=== PATIENT | male | born 1945 | race Caucasian/White ===

== ENCOUNTER 2022-10-10 12:05 | Emergency (ER) | payer OTHER, SELFPAY ==
[2022-10-10 12:13] VITALS: BP 102/62; PULSE 65; RESP 14; TEMP 36.7; O2SAT 97; BMI 14.9
--- NOTE | 2022-10-10 13:31 | ED_ITS ---
HPI - Skin/Abscess/Foreign Bdy General: Chief complaint: Skin/Abscess/Foreign Body Stated complaint: right leg has a lump with pain Time Seen by Provider: 10/10/22 13:26 History of Present Illness: Patient is a 77-year-old male comes to the ED with lesion on back of right thigh. Patient noticed sore bump on back of right thigh about 4 days ago. Denies removing any tick from area. The small bump on the back of his right leg is tender to the touch but denies any puslike drainage. Over the last 24 hours patient says he he has had the chills, body aches and fatigue. He does have other tick bites on the front of his right leg that he is removed the ticks from and has not had any problems with those tick bites. Associated symptoms: Deny chills, fever(s), nausea or vomiting Review of Systems Const: Denies: fever(s), chills or fatigue Eyes: Denies: change in vision or eye discomfort ENMT: Denies: throat pain, odynophagia, nasal discharge or nasal congestion Card: Denies: chest pain, palpitations, edema, swelling of feet/ankles, dyspnea on exertion or orthopnea Resp: Denies: dyspnea, productive cough or non-productive cough GI: Denies: abdominal pain, nausea, vomiting, diarrhea, constipation or hematochezia : Denies: flank pain, difficulty urinating, dysuria or hematuria Musc: Denies: neck pain, back pain or extremity swelling Skin/Breast: Reports: new lesions (Right posterior thigh); Denies: rash Neuro: Denies: headache(s), numbness in extremities or weakness in extremities [facility] ED PFSH: Medical History (Updated 10/10/22 @ 13:54 by BENIGNO Kirkpatrick) No pertinent family history Surgical History (Updated 10/10/22 @ 13:54 by BENIGNO Kirkpatrick) No pertinent past surgical history Physical Exam Const: COMMON NORMALS: no acute distress, patient oriented x3 and alert HENMT: COMMON NORMALS: normocephalic HEAD & SCALP: normocephalic MOUTH: Normal oral and palatal mucosa present THROAT: posterior oropharynx normal and uvula midline Neck/C-Spine: COMMON NORMALS: supple GENERAL: Yes normal visual inspection Resp: COMMON NORMALS: normal respiratory effort, No retractions, No use of accessory muscles and clear to auscultation bilaterally AUSCULTATION: clear to auscultation bilaterally Cardio: COMMON NORMALS: regular rate, regular rhythm, S1 normal heart sound present, S2 normal heart sound present, No gallops present (Cardio), No clicks present (Cardio), No murmurs present (Cardio) and Peripheral pulses 2+ throughout RATE: regular rate RHYTHM: regular rhythm HEART SOUNDS: S1 normal heart sound present and S2 normal heart sound present PERIPHERAL PULSES: Peripheral pulses 2+ throughout GI: COMMON NORMALS: Normal to inspection, nondistended, normoactive bowel sounds present, Soft to palpation, non-tender and no masses PALPATION: Yes Soft to palpation : COMMON NORMALS: Yes no CVA tenderness BLADDER/KIDNEY EXAM: Yes no CVA tenderness Back/Pelvis: COMMON NORMALS: no CVA tenderness Extremity: COMMON NORMALS: normal to inspection Neuro: COMMON NORMALS: patient oriented x3 SENSORIUM/ORIENTATION: Yes alert GAIT: Yes Normal gait present Skin: NARRATIVE SKIN EXAM: Right posterior thigh?small, less than 0.5 cm diameter papule with some slight erythema and it is tender. No purulent drainage or warmth noted. No embedded tick seen. No erythema migrans. Findings suggestive of a bug bite. GENERAL SKIN EXAM: dry skin Course Vital Signs: Vital signs: Vital Signs Temperature 98.0 F 10/10/22 12:13 Pulse Rate 65 10/10/22 12:13 Respiratory Rate 14 10/10/22 12:13 Blood Pressure 102/62 10/10/22 12:13 Pulse Oximetry 97 10/10/22 12:13 Oxygen Delivery Me thod Room Air 10/10/22 12:13 MDM - Skin/Abscess/Foreign Bdy Medicial Decision Making Patient is a 77-year-old male comes to the ED with lesion on back of right thigh. Patient noticed sore bump on back of right thigh about 4 days ago. Denies removing any tick from area. The small bump on the back of his right leg is tender to the touch but denies any puslike drainage. Over the last 24 hours patient says he he has had the chills, body aches and fatigue. He does have other tick bites on the front of his right leg that he is removed the ticks from and has not had any problems with those tick bites. Right posterior thigh?small, less than 0.5 cm diameter papule with some slight erythema and it is tender. No purulent drainage or warmth noted. No embedded tick seen. No erythema migrans. Findings suggestive of a bug bite. Vitals are stable. Patient was diagnosed with insect bite and was discharged home with a prescription for doxycycline to cover potential tick bite and tick disease. He was told to follow-up with his PCP in the next week for reevaluation. Return to ED precautions given. Patient understood agree with plan. Discharge Plan Discharge Patient Disposition: Home Clinical Impression: Insect bite Qualifiers: Encounter type: initial encounter Site of insect bite: thigh Laterality: right Qualified Code(s): S70.361A - Insect bite (nonvenomous), right thigh, initial encounter Condition: Stable Prescriptions: New doxycycline hyclate 100 mg capsule 100 mg PO BID 10 Days Qty: 20 0RF Discharge Orders: Discharge ED (Routine); Ordered 10/10/22 Ordered By: Jaxson Harry Referrals: Nicki Arellano APRN-BC [Primary Care Provider] - Discharge Diet: Regular Discharge Activity: Increase activity as tolerated Patient Instructions: Insect Bite or Sting (ED), Tick Bite (ED) Activity Restrictions/Additional Instructions: Follow-up with medical provider as directed in the next 5 to 7 days for reevaluation. Take medications as prescribed. Return to the ER or your medical provider if condition worsens. Please read and understand discharge instruct ions. Thank you for choosing [facility] for your healthcare needs today. Please realize this is an emergency room and that we are providing you with a medical screening exam and this may not be complete and all inclusive of all the testing and or work up that you may need to determine your ailment or severity of your illness. It is very important that you follow up as instructed or that you return to the Emergency Department should you have concerns or if your condition changes or worsens in any way. Coding Level of Care Code ED Hospitality Aide for Pat Sosa
== END 2022-10-10 13:42 | disposition home or self-care (01) ==
PROVIDERS: Emergency Provider Physician Assistant; PCP Nurse Practitioner Family
DX: S70.361A Insect bite (nonvenomous), right thigh, initial encounter (principal); W57.XXXA Bitten or stung by nonvenomous insect and other nonvenomous arthropods, initial encounter; Z20.9 Contact with and (suspected) exposure to unspecified communicable disease
CPT/HCPCS: 99283

== ENCOUNTER → 2022-11-20 10:48 | Outpatient (BNVA) | payer MEDICARE, SELFPAY | PROVIDERS: PCP Nurse Practitioner Family; Visit Provider Nurse Practitioner Family | DX: M10.9 Gout, unspecified (principal); R63.4 Abnormal weight loss | CPT/HCPCS: 80053; 84443; 84550; 85025 ==

== ENCOUNTER 2023-05-14 19:02 | Emergency (ER) | payer MEDICARE, MEDICAID, SELFPAY ==
[2023-05-14] VITALS (7 sets, daily range): BP systolic 116–138; BP diastolic 43–84; PULSE 49–60; RESP 17–21; TEMP 37; O2SAT 94–99; BMI 15.7
--- NOTE | 2023-05-14 19:03 | ECG_ITS ---
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 Measurements Intervals [place] Rate: 54 P: 84 FL: 154 QRS: 92 QRSD: 94 T: 81 QT: 457 QTc: 434 Interpretive Statements SINUS BRADYCARDIA WITH OCCASIONAL VENTRICULAR PREMATURE COMPLEXES BORDERLINE RIGHT AXIS DEVIATION [QRS AXIS > 90] PATTERN CONSISTENT WITH PULMONARY DISEASE INCOMPLETE RIGHT BUNDLE BRANCH BLOCK [90+ ms QRS DURATION, TERMINAL R IN V1/V2, 40+ ms S IN I/aVL/V4/V5/V6] No previous ECG available for comparison Electronically Signed On 05-15-2023 11:05:30 STEEL DETAILER by Harjeet Carlos M.D. [id number] justino
--- NOTE | 2023-05-14 19:03 | XRR_ITS ---
PROCEDURE INFORMATION: Exam: XR Chest Exam date and time: 05/14/2023 7:50 PM Age: 78 years old Clinical indication: Pain; Chest pressure; Additional info: Cp TECHNIQUE: Imaging protocol: Radiologic exam of the chest. Views: 1 view. COMPARISON: No relevant prior studies available. FINDINGS: Lungs: No focal consolidation. There are severe emphysematous changes. 2 cm nodular opacity in the lower left lung. Correlation with CT of the chest is recommended to evaluate for pulmonary nodule/neoplasm. Pleural spaces: No evidence of pneumothorax or pleural effusion. Heart/Mediastinum: Cardiomediastinal silhouette is within normal limits. Bones/joints: No evidence of acute osseous abnormality. XR/XR chest 1V portable [id number] IMPRESSION: 1. No acute cardiopulmonary abnormality. 2. Emphysematous changes with a 2 cm nodular opacity in the lower left lung. Correlation with CT of the chest is recommended to evaluate for pulmonary nodule/neoplasm.
--- NOTE | 2023-05-14 19:20 | ED_ITS ---
HPI - Chest Pain 2 General: Chief Complaint: Chest Pain Stated Complaint: Chest Pain Time Seen by Provider: 05/14/23 19:03 Source: patient Mode of arrival: ambulatory Limitations: no limitations History of Present Illness: 78-year-old male who is here from home s tates that over the last 3 to 4 days having some chest pain states he has had stents last year and has had pain within since then actually. EMS was called to his house tonight because his was having some weakness he states that he had been feeling weak and nauseous as well. They have been using a wood-burning stove he denies any pain currently [facility] ED 2 PFS: Medical History No pertinent family history Surgical History No pertinent past surgical history Course 2 Vital Signs: Vital signs: Vital Signs Temperature 98.6 F 05/14/23 19:08 Pulse Rate 54 L 05/14/23 21:03 Respiratory Rate 17 05/14/23 19:08 Blood Pressure 138/49 05/14/23 21:03 Pulse Oximetry 99 05/14/23 21:03 Oxygen Delivery Me thod Room Air 05/14/23 21:03 MDM - Chest Pain Medical Decision Making Patient presents here with chest pain he is well-appearing here he is 9% on room air x-ray did show a pulmonary nodule I informed him of this and informed that he needs an outpatient CT with his PCP his troponins here are negative he is stable for discharge he is follow-up with PCP and return if worsening. Medical Records I reviewed the patient's medical records. Lab Data I reviewed the patient's lab results. 05/14/23 19:19 05/14/23 19:19 Radiology Impressions Chest X-Ray 05/14/23 19:03 IMPRESSION: 1. No acute cardiopulmonary abnormality. 2. Emphysematous changes with a 2 cm nodular opacity in the lower left lung. Correlation with CT of the chest is recommended to evaluate for pulmonary nodule/neoplasm. Laboratory Results WBC 6.89 10^3/uL (3.29-11.43) 05/14/23 19:19 RBC 2.84 10^6/uL (3.85-5.65) L 05/14/23 19:19 Hgb 8.50 g/dL (11.27-16.99) L 05/14/23 19:19 Hct 27.2 % (37-53) L 05/14/23 19:19 MCV 95.8 fl (82-101) 05/14/23 19:19 MCH 29.9 pg (27-33) 05/14/23 19:19 MCHC 31.3 g/dL (30-55) 05/14/23 19:19 RDW 14.5 % (12.1-15.1) 05/14/23 19:19 Plt Count 262 10^3/cmm (157-399) 05/14/23 19:19 MPV 10.0 fL (7.4-10.4) 05/14/23 19:19 Neut % (Auto) 74.2 % 05/14/23 19:19 Lymph % (Auto) 17.3 % 05/14/23 19:19 Gaston % (Auto) 7.1 % 05/14/23 19:19 Eos % (Auto) 0.4 % 05/14/23 19:19 Baso % (Auto) 0.7 % 05/14/23 19:19 Neut # (Auto) 5.11 10^3/uL (1.8-7.7) 05/14/23 19:19 Lymph # (Auto) 1.2 10^3/uL (0.8-4.8) 05/14/23 19:19 Gaston # (Auto) 0.5 10^3/uL (0.2-0.9) 05/14/23 19:19 Eos # (Auto) 0.0 10^3/uL (0.0-0.8) 05/14/23 19:19 Baso # (Auto) 0.1 10^3/uL (0.0-0.1) 05/14/23 19:19 Nucleated RBC % (auto) 0 % 05/14/23 19:19 Nucleated RBCs # 0.0 /100WBC 05/14/23 19:19 Specimen Type Arterial 05/14/23 19:35 Sample Site Radial, right 05/14/23 19:35 ABG pH 7.39 (7.35-7.45) 05/14/23 19:35 ABG pCO2 43.6 mmHg (35-45) 05/14/23 19:35 ABG pO2 81.0 mmHg (80.0-100.0) 05/14/23 19:35 ABG PO2/FiO2 Ratio 0 05/14/23 19:35 ABG HCO3 26.6 mmol/L (22-26) H 05/14/23 19:35 ABG O2 Saturation 98.2 05/14/23 19:35 ABG Base Excess 1.4 mmol/L (-2.0-2.0) 05/14/23 19:35 Cordell Test Pos 05/14/23 19:35 A-a O2 Gradient 1.9 mmHg (5-10) L 05/14/23 19:35 Hematocrit 26.8 % (42-52) L 05/14/23 19:35 Hgb O2 Saturation 91.7 % (95-100) L 05/14/23 19:35 Carboxyhemoglobin 5.6 %THgb (0.4-20.1) 05/14/23 19:35 Methemoglobin 0.9 % (0.4-1.5) 05/14/23 19:35 Total Hemoglobin 8.7 g/dL (14-18) L 05/14/23 19:35 Sodium 140.0 mmol/L (131-143) 05/14/23 19:35 Potassium 3.8 mmol/L (3.5-5.0) 05/14/23 19:35 Glucose 81.0 mg/dL (70-115) 05/14/23 19:35 Ionized Calcium 1.2 mmol/L (1.1-1.4) 05/14/23 19:35 O2 Delivery Device None 05/14/23 19:35 FiO2 21.0 % 05/14/23 19:35 Eyeglass Assembler ID [email or web address] 05/14/23 19:35 Sodium 138 mmol/L (136-145) 05/14/23 19:19 Potassium 4.1 mmol/L (3.5-5.1) 05/14/23 19:19 Chloride 102 mmol/L (98-107) 05/14/23 19:19 Carbon Dioxide 27 mmol/L (22-29) 05/14/23 19:19 Anion Gap 13.1 (5-19) 05/14/23 19:19 BUN 25 mg/dL (8-23) H 05/14/23 19:19 Creatinine 1.1 mg/dL (0.7-1.2) 05/14/23 19:19 GFR Calculation Not Reportable 05/14/23 19:19 Glucose 82 mg/dL (65-115) 05/14/23 19:19 Calculated Osmolality 289 mOsm/kg (285-295) 05/14/23 19:19 Calcium 9.0 mg/dL (8.5-10.5) 05/14/23 19:19 Total Bilirubin 0.3 mg/dL (0.15-1.2) 05/14/23 19:19 AST 37 U/L (0-40) 05/14/23 19:19 ALT 24 U/L (0-41) 05/14/23 19:19 Alkaline Phosphatase 78 U/L (40-130) 05/14/23 19:19 Troponin T Baseline 50 ng/L (0-15) H 05/14/23 19:19 Troponin T 120 Minute 46.19 ng/L (0-15) H 05/14/23 20:36 Delta Troponin T -3.81 ABS# (0-10) L 05/14/23 20:36 Total Protein 6.2 g/dL (6.6-8.7) L 05/14/23 19:19 Albumin 3.8 g/dL (3.5-5.2) 05/14/23 19:19 Globulin 2.4 g/dL (1.3-4.6) 05/14/23 19:19 Lipase 28 U/L (13-60) 05/14/23 19:19 SARS-CoV-2 Ag (Rapid) negative (Negative) 05/14/23 20:00 All radiology interpretation(s) finalized by discharge EKG Data EKG 1: I personally reviewed and interpreted this EKG as follows: EKG interpretation date: 05/14/23 EKG interpretation time: 19:06 Interpretation: sinus elyssa hr [address] or t wave abnormalities qrs 94 qtc 443 Discharge Plan Discharge Patient Disposition: Home Clinical Impression: Chest pain Qualifiers: Chest pain type: unspecified Qualified Code(s): R07.9 - Chest pain, unspecified Condition: Stable Prescriptions: No Action metoprolol succinate 50 mg tablet extended release 24 hr 50 mg PO DAILY atorvastatin 40 mg tablet 40 mg PO DAILY Brilinta 90 mg tablet 90 mg PO BID nitroglycerin 0.4 mg tablet, sublingual 0.4 mg sublingual Q5M PRN Rx Instructions: do not exceed 3 doses per episode azithromycin 250 mg tablet See Rx Instructions PO .COMPLEX Qty: 6 0RF Rx Instructions: For 250 mg dose pack: take 500 mg today (day 1), then 250 mg for 4 days (days 2-5) PO Discharge Orders: Discharge ED (Routine); Ordered 05/14/23 Ordered By: Valerie Ambrose Referrals: Nicki Arellano APRN-LUCY [Primary Care Provider] - 1-3 days Discharge Diet: Advance as tolerated Discharge Activity: Resume usual activity Patient Instructions: Chest Pain (ED) Activity Restrictions/Additional Instructions: Lung nodule was noted on your chest x-ray need to follow-up with your PCP for this and likely get an outpatient CT scan Coding Level of Care Code ED Product Management Consultant for Pat Sosa
[2023-05-14 19:41] LABS: Basophils # 0.1 10^3/uL (0.0-0.1); Basophils % 0.7 %; Eosinophils % 0.4 %; Hematocrit 27.2 % (37-53); Lymphocytes # 1.2 10^3/uL (0.8-4.8); Lymphocytes % 17.3 %; Mean Corpuscular HGB Conc 31.3 g/dL (30-55); Mean Corpuscular Hemoglobin 29.9 pg (27-33); Mean Corpuscular Volume 95.8 fl (82-101); Monocytes # 0.5 10^3/uL (0.2-0.9); Monocytes % 7.1 %; Neutrophils # 5.11 10^3/uL (1.8-7.7); Neutrophils % 74.2 %; Nucleated Red Blood Cells % 0 %; Platelet Count 262 10^3/cmm (157-399); Red Blood Count 2.84 10^6/uL (3.85-5.65); Red Cell Distribution Width 14.5 % (12.1-15.1); White Blood Count 6.89 10^3/uL (3.29-11.43)
[2023-05-14 19:44] LABS: ABG PCO2 43.6 mmHg (35-45); ABG PH Result 7.39 (7.35-7.45); Alveolar-Arterial Oxygen Gradi 1.9 mmHg (5-10); Arterial Blood Gas Hematocrit 26.8 % (42-52); Base Excess ABG 1.4 mmol/L (-2.0-2.0); Blood Gas Allen Test Pos; Blood Gas Sample Site Radial, right; Blood Gas Sample Type Arterial; Carboxyhemoglobin 5.6 %THgb (0.4-20.1); HCO3 ABG 26.6 mmol/L (22-26); HGB O2 Sat 91.7 % (95-100); Ionized Calcium Level - ABG 1.2 mmol/L (1.1-1.4); Methemoglobin 0.9 % (0.4-1.5); Oxygen Saturation ABG 98.2; PO2 FiO2 Ratio Arterial Blood 0; Potassium Level - ABG 3.8 mmol/L (3.5-5.0); Total Hemoglobin 8.7 g/dL (14-18)
[2023-05-14 19:58] LABS: Troponin(5th) Baseline 50 ng/L (0-15)
[2023-05-14 19:59] LABS: Alanine Aminotransferase 24 U/L (0-41); Albumin Level 3.8 g/dL (3.5-5.2); Alkaline Phosphatase 78 U/L (40-130); Anion Gap 13.1 (5-19); Aspartate Amino Transferase 37 U/L (0-40); Blood Urea Nitrogen 25 mg/dL (8-23); Carbon Dioxide 27 mmol/L (22-29); Chloride 102 mmol/L (98-107); Globulin 2.4 g/dL (1.3-4.6); Glucose 82 mg/dL (65-115); Lipase 28 U/L (13-60); Osmolality Calculated 289 mOsm/kg (285-295); Potassium 4.1 mmol/L (3.5-5.1); Sodium 138 mmol/L (136-145); Total Bilirubin 0.3 mg/dL (0.15-1.2); Total Protein 6.2 g/dL (6.6-8.7)
[2023-05-14 20:30] LABS: SARS Covid-2 Antigen negative (Negative)
--- NOTE | 2023-05-14 21:03 | ECG_ITS ---
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 Measurements Intervals [place] Rate: 58 P: 84 [place]: 161 QRS: 96 QRSD: 98 T: 77 QT: 447 QTc: 439 Interpretive Statements SINUS BRADYCARDIA BORDERLINE RIGHT AXIS DEVIATION [QRS AXIS > 90] INCOMPLETE RIGHT BUNDLE BRANCH BLOCK [90+ ms QRS DURATION, TERMINAL R IN V1/V2, 40+ ms S IN I/aVL/V4/V5/V6] Compared to ECG 05/14/2023 19:06:51 Ventricular premature complex(es) no longer present Electronically Signed On 05-15-2023 11:07:52 VETERINARY LABORATORY TECHNICIAN by Harjeet Carlos M.D. [id number]
[2023-05-14 21:22] LABS: Troponin 5 2HR 46.19 ng/L (0-15); Troponin 5 2HR Delta -3.81 ABS# (0-10)
--- NOTE | 2023-05-14 22:20 | PC.NURSE ---
discharge delayed d/t patient not having ride home at this time. attempting EMS ride.
--- NOTE | 2023-05-14 22:36 | PC.NURSE ---
pt states they cannot go home d/t not having electricity, heat, or oxygen at home. states she wears oxygen constantly but has ran out.
--- NOTE | 2023-05-14 22:37 | PC.NURSE ---
pt and pts informed that they can stay in ER room 1 overnight, but they are both discharged and no longer a patient in the ER. pt and verbalized understanding of information. had no further questions.
--- NOTE | 2023-05-15 00:06 | PC.NURSE ---
case management consult ems states that pt lives in a portable house 'shack' with no electric, pt has a wood burning stove with no dry wood. ems states rodents in building in 'what little food' they have. pt is supposed to be on o2 with no refills for tonight. generator is nt working tonight. and car is too cold to start.
== END 2023-05-14 22:41 | disposition home or self-care (01) ==
PROVIDERS: Emergency Provider Emergency Medicine; PCP Nurse Practitioner Family
DX: R07.9 Chest pain, unspecified (principal); R91.1 Solitary pulmonary nodule
CPT/HCPCS: 36600; 71045; 80051; 80053; 82330; 82805; 83690; 84484; 85025; 87426; 93005; 99285